=== PATIENT | female | born 1995 | race Caucasian/White ===

== ENCOUNTER 2017-10-07 22:27 | Emergency (ER) | payer OTHER ==
[2014-07-17 08:19] VITALS: BMI 23.8
[~2017-10-07 22:27] MED LIST: IBUPROFEN600 MG PO; PERCOCET 5-3251 TAB PO
[2017-10-07 23:42] LABS: BASOPHILS 0.2 % (0-2); HEMATOCRIT 40.6 % (36.0-48.0); HEMOGLOBIN 13.6 g/dL (12-16); IMMATURE GRANULOCYTES 0.1 % (0-5); LYMPHOCYTES 25.1 % (15-50); MCH 28.7 pg (26.0-34.0); MCHC 33.5 g/dL (31.0-37.0); MCV 85.7 fL (80.0-100.0); MEAN PLATELET VOLUME 9.6 fL (7.4-10.4); MONOCYTES 8.6 % (2-11); PLATELET COUNT 380 10x3/uL (130-400); RBC 4.74 10x6/uL (4.00-5.40); WBC 9.5 10x3/uL (4.8-10.8)
== END 2017-10-08 00:01 | disposition home or self-care (01) ==
LOC: D.ER 22:27
PROVIDERS: Nurse Practitioner Family
DX: L02.411 Cutaneous abscess of right axilla (principal)

== ENCOUNTER 2017-10-08 20:01 | Emergency (ER) | payer OTHER ==
[2014-07-17 08:19] VITALS: BMI 23.8
[2017-10-08 21:48] LABS: APPEARANCE HAZY (CLEAR); BILIRUBIN NEGATIVE (NEGATIVE); COLOR YELLOW (YELLOW); GLUCOSE NEGATIVE (NEGATIVE); KETONE NEGATIVE (NEGATIVE); NITRITE NEGATIVE (NEGATIVE); PROTEIN 1+ mg/dL (NEGATIVE); UROBILINOGEN NORMAL (NORMAL)
[2017-10-08 21:49] LABS: BACTERIA MANY /hpf (NONE SEEN); RED CELLS - URINE 0-5 /hpf (0-5); WHITE CELLS - URINE >50 /hpf (0-5)
[2017-10-08 21:55] LABS: HCG URINE POSITIVE (NEGATIVE)
[2017-10-08 22:42] LABS: BASOPHILS 0.3 % (0-2); EOSINOPHILS 1.7 % (0-7); HEMATOCRIT 40.6 % (36.0-48.0); HEMOGLOBIN 13.7 g/dL (12-16); IMMATURE GRANULOCYTES 0.2 % (0-5); MCH 28.8 pg (26.0-34.0); MCHC 33.7 g/dL (31.0-37.0); MCV 85.5 fL (80.0-100.0); MEAN PLATELET VOLUME 9.8 fL (7.4-10.4); MONOCYTES 10.3 % (2-11); NEUTROPHILS 54.5 % (40-80); PLATELET COUNT 378 10x3/uL (130-400); RBC 4.75 10x6/uL (4.00-5.40); RDW 13.9 % (11.5-14.5)
[2017-10-08 22:58] LABS: ALBUMIN 3.9 g/dL (3.4-5.0); ALKALINE PHOSPHATASE 62 U/L (46-116); ALT (SGPT) 24 U/L (10-68); CALC OSMOLALITY 272 mosm/kg (275-300); CARBON DIOXIDE 28.6 mmol/L (21.0-32.0); CHLORIDE - SERUM 99 mmol/L (98-107); CREATININE - SERUM 0.7 mg/dL (0.6-1.3); GLUCOSE 92 mg/dL (74-106); POTASSIUM - SERUM 3.3 mmol/L (3.5-5.1); PROTEIN - SERUM 7.4 g/dL (6.4-8.2); SODIUM 137 mmol/L (136-145); UREA NITROGEN 11 mg/dL (7-18); WBC 6.6 10x3/uL (4.8-10.8); eGFR NON AFRICAN AMERICAN > 90 mL/min (90-120)
[2017-10-08 23:04] LABS: HCG - QUANTITATIVE (MATERNAL) 58 mIU/mL
== END 2017-10-09 00:05 | disposition home or self-care (01) ==
LOC: D.ER 20:01
PROVIDERS: Family Medicine
DX: L03.111 Cellulitis of right axilla (principal); O02.81 Inappropriate change in quantitative human chorionic gonadotropin (hCG) in early pregnancy; N39.0 Urinary tract infection, site not specified; F17.200 Nicotine dependence, unspecified, uncomplicated

== ENCOUNTER 2017-10-16 19:43 | Emergency (ER) | payer OTHER ==
[2014-07-17 08:19] VITALS: BMI 23.8
[2017-10-16 20:52] LABS: BASOPHILS 0.5 % (0-2); HEMATOCRIT 43.7 % (36.0-48.0); HEMOGLOBIN 14.9 g/dL (12-16); IMMATURE GRANULOCYTES 0.3 % (0-5); LYMPHOCYTES 35.4 % (15-50); MCH 29.2 pg (26.0-34.0); MCHC 34.1 g/dL (31.0-37.0); MCV 85.5 fL (80.0-100.0); MEAN PLATELET VOLUME 9.4 fL (7.4-10.4); MONOCYTES 9.2 % (2-11); NEUTROPHILS 53.6 % (40-80); RBC 5.11 10x6/uL (4.00-5.40); RDW 14.2 % (11.5-14.5); WBC 7.7 10x3/uL (4.8-10.8)
[2017-10-16 21:02] LABS: HCG SERUM POSITIVE (NEGATIVE)
[2017-10-16 21:17] LABS: PLATELET COUNT 511 10x3/uL (130-400)
[2017-10-16 21:18] LABS: APPEARANCE HAZY (CLEAR); BACTERIA MANY /hpf (NONE SEEN); BILIRUBIN NEGATIVE (NEGATIVE); COLOR YELLOW (YELLOW); EPITHELIAL CELLS 0-5 /hpf (0-5); GLUCOSE NEGATIVE (NEGATIVE); KETONE NEGATIVE (NEGATIVE); NITRITE POSITIVE (NEGATIVE); PROTEIN TRACE mg/dL (NEGATIVE); RED CELLS - URINE OCC /hpf (0-5); SPECIFIC GRAVITY 1.015 (1.005-1.020); UROBILINOGEN NORMAL (NORMAL); WHITE CELLS - URINE >50 /hpf (0-5)
== END 2017-10-17 02:58 | disposition home or self-care (01) ==
LOC: D.ER 19:43
PROVIDERS: Emergency Medicine
DX: O20.9 Hemorrhage in early pregnancy, unspecified (principal); N39.0 Urinary tract infection, site not specified; O20.0 Threatened abortion; Z3A.00 Weeks of gestation of pregnancy not specified

== ENCOUNTER 2018-03-17 19:00 | Emergency (ER) | payer MEDICAID ==
[2018-03-17 19:07] VITALS: Ht 170.2 cm
[2018-03-17] MEDS ORDERED: TORADOL10 MG PO (21:26)
[2018-03-17 21:56] VITALS: BP 128/76
== END 2018-03-17 21:57 | disposition home or self-care (01) ==
LOC: D.ER 19:00
DX: J03.90 Acute tonsillitis, unspecified (principal); F17.200 Nicotine dependence, unspecified, uncomplicated